=== PATIENT | female | born 2000 | race Caucasian/White ===

== ENCOUNTER 2022-12-12 09:05 | Outpatient (CLI) | payer BC, SELFPAY ==
--- OUTSIDE RECORDS SUMMARY | 2022-12-12 09:08 | XMS_ITS ---
:2000 Author Organization [facility] Address [address] [place] [address] [place] [address] Care Team Providers Name Role Phone Christine Howard Unavailable Unavailable PROBLEMS Type Condition ICD9-CM Code XML96-FY Code Onset Condition SNO MED Code Dates Status Problem Obesity (BMI E66.9 Active 8143289 01 30-39.9) Problem Oral aphthous K12.0 Active 764782 005 ulcer Problem Migraine with G43.109 Active 874988 6 aura and without status migrainosus, not intractable Problem Anxiety F41.9 Active 67965035 Problem Exercise induced J45.990 Active 323 266853 bronchospasm Problem Other recurrent F33.8 Active 1916 75744 depressive disorders Problem Panic attacks F41.0 Active 997813 005 ALLERGIES Substance Reaction Event Type Date Status Amoxicillin rash Drug Allergy Nov, Active ENCOUNTERS Encounter Location Date Diagnosis [address] Nov, Other rec urrent depressive [place] [address] disorders F33.8 ; with 7 completed weeks gestation Z3A.01 ; Anxiety F41.9 ; Upper ba ck pain M54.9 and Migrai ne with aura and without stat us migrainosus, not intractable G43.[address] Nov, [place] [address] Oct, Anxiety F 41.9 [place] [address] Jul, [place] [address] Jul, [place] [address] Jul, Anxiety F 41.9 ; Other [place] recurrent depres sive disorders F33.8 and Oral aphthous ulcer K 12.[address] Jun, Anxiety F 41.9 [place] [address] March, [place] [address] March, Encounter for screening for [place] [address] malignant neopla sm of cervix Z12.4 ; Encounte r for screening examin ation for sexually transmi tted disease Z11.3 ; Anxiety F41.9 ; Dermatophytosis of unspecified site B35.9 ; Need for Tdap va ccination Z23 and Immuniza tion due Z23 [address] March, Anxiety F 41.9 [place] [address] Nov, Anxiety F 41.9 [place] [address] Aug, Encounter for BCP ( [place] [address] control pills) i nitial prescription Z30 .011 ; Encounter for Ne xplanon removal Z30.46 ; Anxiety F41.9 and Immuni zation due Z23 [address] 13 May, 2021 Anxiety F 41.9 ; Other [place] [address] recurrent depres sive disorders F33.8 and Panic attacks F41.[address] 08 May, 2021 Anxiety F 41.9 [place] [address] Jan, Anxiety F 41.9 ; [facility] [place] [address] attacks F41.0 an d Other recurrent depres sive disorders F33.[address] Nov, Anxiety F 41.9 ; [facility] [place] [address] attacks F41.0 ; Exercise induced bronchos pasm J45.990 and Obesity (BMI 30-39.9) E66.[address] Jul, [place] [address] Jul, [place] [address] Jun, Encounter for routine Center [place]89 history and phys ical examination of a dult Z00.00 ; Anxiety F41.9 ; Other recurrent depres sive disorders F33.8 ; Exercise induced bronchos pasm J45.990 ; Nausea R11.0 a nd Obesity (BMI 30-39.9) E6 6.[address] Nov, [place] [address] Aug, [place] [address] Jun, Encounter for routine [facility] [place] history and phys ical examination of a dult Z00.00 ; Anxiety F41.9 ; Other recurrent depres sive disorders F33.8 and Exercise induced bronchos pasm J45.[address] March, Acute ebony opharyngitis J00 [place] [place]89 and Follicular c yst of the skin and subcuta neous tissue, unspecif ied L72.[address] Nov, TOMAS Garcia [address] Nov, [place] [address] Nov, TOMAS Garcia [address] Nov, TOMAS Garcia [address] Nov, [place] [address] Nov, [place] [address] Nov, Acute pha ryngitis, TOMAS Garcia89 unspecified J02. 9 and Other conjunctivitis H 10.89 IMMUNIZATIONS Vaccine Route Administration Date Status Tdap (BOOSTRIX) IM Intramuscular March 20, 2022 Administered SOCIAL HISTORY Qualifiers Date Never Smoker REASON FOR REFERRAL Reason Control Referral Organization [facility] Referring Provider First Name Christine Referring Provider Last Name Anita Referring Provider Specialty Family Practice Referring Provider Referring Provider email [email or web address] Referred Provider [facility], [place] Referred Provider Specialty Family Medicine Reason Non-palpable nexplanon, need s removal Referral Organization [facility] Referring Provider First Name Christine Referring Provider Last Name Anita Referring Provider Specialty Family Practice Referring Provider Referring Provider email [email or web address] Referred Provider DELISA Wadsworth Referred Provider Specialty OB - Gynecology Reason eval and treat Referral Organization [facility] Referring Provider First Name Christine Referring Provider Last Name Anita Referring Provider Specialty Family Practice Referring Provider Referring Provider email [email or web address] Referred Provider Kahlil Salas Referred Provider Specialty Mental health counseling FUNCTIONAL STATUS PLAN OF CARE Activity Details Follow Up 4-6 weeks or sooner as lam jones Reason:Depression, migraines, neck pain Referral Control, [place] [facility] Referral Non-palpable nexplanon, need s removal, [facility] and [facility] [place] VITAL SIGNS Height 65 in 2022-11-23 Weight 244 lbs 2022-11-23 BMI 40.6 kg/m2 2022-11-23 Heart Rate 98 /min 2022-11-23 Temperature 97.5 degrees Fahrenheit 2022-11-23 Respiratory Rate 16 /min 2022-11-23 Oximetry 99 % 2022-11-23 Blood pressure systolic 108 mm Hg 2022-11-23 Blood pressure diastolic 75 mm Hg 2022-11-23 MEDICATIONS Medication Instructions Dosage Frequency Start End Duration Statu s Date Date Ventolin HFA 108 Inhalation 2 puffs as 4h N ot-Taki (90 Base) every 4 hrs needed ng MCG/ACT Sertraline HCl Orally Once a 1/2 tablet 24h Nov, days Active 50 MG day for week 120[address] then increase to 1 tablet hydrOXYzine HCl Orally every 8 1-2 tablets 8h 30 da ys Not-Taki 25 MG hrs as needed ng DULoxetine HCl Orally Once a 1 capsule 24h 90 days N ot-Taki 60 MG day ng Nexplanon 68 MG as directed 1095 days No t-Taki ng Naproxen 500 MG Orally every 12 1 tablet as 12h 90 d ays Not-Taki hrs needed ng Norethindrone Orally Once a 1 tablet 24h Aug, day(s) N ot-Taki 0.35 MG day 2020 ng Lidocaine HCl 2 Mouth/Throat 1-2 tsp 21 Sep, Not -Taki % every 3-4 hours (mix with 2021 ng equal amount liquid antacid of choice) Methocarbamol Orally every 8 1 tablet No t-Taki 750 MG hrs as needed ng PROCEDURES Procedure Date Ordered Result Body Site STREP A ASSAY W/OPTIC Nov 16, 2016 Tdap (BOOSTRIX) March 20, 2022 VENIPUNCT, ROUTINE* Jul 03, 2019 SPECIMEN HANDLING March 20, 2022 IMMUNIZATION ADMIN March 20, 2022 RESULTS Name Result Date Reference Range BV/VAGINITIS PANEL DNA PROBE 2022-03-20 RICKEY: NOT DETECTED NOT DETECTED GARDNERELLA: NOT DETECTED NOT DETECTED TRICHOMONAS: NOT DETECTED NOT DETECTED CHLAMYDIA/N. 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 BX: PREV. PAP: REVIEW MUD ANALYSIS WELL LOGGING OPERATOR: SOURCE: STATEMENT OF ADEQUACY: LIPID PANEL 2019-07-03 CHOL/HDLC RATIO 3.5 <5.0 CHOLESTEROL, TOTAL 170 <200 HDL CHOLESTEROL 49 >50 LDL-CHOLESTEROL 99 NON HDL CHOLESTEROL 121 <130 TRIGLYCERIDES 127 <150 BASIC METABOLIC PANEL 2019-07-03 BUN/CREATININE RATIO NOT APPLICABLE 6-22 CALCIUM 9.7 8.6-10.2 CARBON DIOXIDE 25 20-32 CHLORIDE 105 98-110 CREATININE 0.91 0.50-1.10 eGFR 105 > OR = 60 eGFR NON-AFR. GIBRALTARIAN 90 > OR = 60 GLUCOSE 77 65-139 POTASSIUM 4.3 3.5-5.3 SODIUM 139 135-146 UREA NITROGEN (BUN) 9 7-25 TSH W/REFLEX TO FT4 2019-07-03 TSH W/REFLEX TO FT4 1.53 LIPID PANEL 2019-07-03 CHOL/HDLC RATIO TNP CHOLESTEROL, TOTAL TNP HDL CHOLESTEROL TNP LDL-CHOLESTEROL TNP NON HDL CHOLESTEROL TNP TRIGLYCERIDES TNP BASIC METABOLIC PANEL 2019-07-03 GLUCOSE TNP CBC (H/H, RBC, INDICES, WBC, 2019-07-03 PLT) HEMATOCRIT 41.1 35.0-45.0 HEMOGLOBIN 13.6 11.7-15.5 MCH 25.5 27.0-33.0 MCHC 33.1 32.0-36.0 MCV 77.1 80.0-100.0 MPV 11.4 7.5-12.5 PLATELET COUNT 353 140-400 RDW 15.1 11.0-15.0 RED BLOOD CELL COUNT 5.33 3.80-5.10 WHITE BLOOD CELL COUNT 8.3 3.8-10.8 HEMOGLOBIN A1c 2019-07-03 HEMOGLOBIN A1c 5.6 <5.7 TSH W/REFLEX TO FT4 2019-07-03 TSH W/REFLEX TO FT4 TNP TEST IN QUESTION- MISC QUESTION 2019-07-03 COMMENT QUESTION: VERIFY DUPLICATE ORDER DONE([id number]) RESOLUTION: QUESTION/PROBLEM: TEST AUTHORIZATION 2019-07-03 CLIENT CONTACT: KIKE Gale COMMENT REPORT ALWAYS MESSAGE SIGNATURE TEST CODE: [id number] TEST NAME: TSH W/REFLEX TO FT4 LIPID JOHNSON CULTURE, THROAT 2017-03-14 CULTURE, THROAT SEE NOTE CULTURE, THROAT 2016-11-16 CULTURE, THROAT SEE NOTE REASON FOR VISIT Insurance Providers [facility] Health Member Patient Patient Patient Patient Patient Subscriber Subscriber Subscriber Group Insurance Plan Plan Plan Plan ID Relationship Address Phone Name Date of ID Name Date of No Type Insurance Insurance Insurance Coverage to Subscriber Address Phone Name Dates BCBS [address] BCBS self 2000 [id number] [employer] [address] [address] [place] [address] MEDICAL (GENERAL) HISTORY Type Description Date Surgical History Nexplanon Removal 09/22/21
--- NOTE | 2022-12-12 09:15 | CRLHL7_ITS ---
For Patients: As a result of the Century Cures Act, medical imaging exams and procedure reports are released immediately into your electronic medical record. You may view this report before your referring provider. If you have questions, please contact your health care provider. INDICATION: First trimester scan, establish dates. COMPARISON: None. TECHNIQUE: Real-time guidry-scale imaging of the pelvis was performed. FINDINGS: Sonographic imaging demonstrates a single living intrauterine gestation. The embryo demonstrates a regular cardiac rate measuring 147 beats per minute. The embryo`s crown-rump length measurement of 3.4 cm corresponds to a gestational age of 10 weeks 2 days with a sonographic due date of 07/08/2023. There is a normal-appearing yolk sac. There are no gross abnormalities noted within the embryo at this early state of development. The gestational sac has a normal appearance. There is no evidence of a perigestational hemorrhage. The amount of fluid within the sac appears appropriate for gestational age. The cervix is closed. The myometrium appears normal. The ovaries are of normal size. Corpus luteal cyst right ovary. There are no suspicious fluid collections noted in the cul-de-sac. IMPRESSION: Normal first trimester OB ultrasound exam. Gestational age calculated at 10 weeks 2 days with a sonographic due date of 07/08/2023. Dictated by Blayne Kovacs MD @ 12/12/2022 1:03:43 PM (Electronically Signed)
== END 2022-12-12 09:06 | disposition home or self-care (01) ==
LOC: US 09:07
PROVIDERS: Visit Provider Registered Nurse
DX: Z34.91 Encounter for supervision of normal pregnancy, unspecified, first trimester (principal); Z3A.10 10 weeks gestation of pregnancy
CPT/HCPCS: 76801; 86592; 86703; 86762; 86787; 86803; 86850; 86900; 86901; 87086; 87340; 87491; 87591

== ENCOUNTER 2023-02-14 08:12 | Outpatient (CLI) | payer BC, SELFPAY ==
--- NOTE | 2023-02-14 08:15 | CRLHL7_ITS ---
For Patients: As a result of the Century Cures Act, medical imaging exams and procedure reports are released immediately into your electronic medical record. You may view this report before your referring provider. If you have questions, please contact your health care provider. INDICATION: Evaluate anatomy. COMPARISON: 12/12/2022 TECHNIQUE: Real time guidry scale imaging of the fetus was performed as well as color Doppler analysis of the umbilical vessels. FINDINGS: Sonographic imaging demonstrates a single living intrauterine gestation. Fetus demonstrates a regular cardiac rate of 139 beats per minute. Fetus has a vertex position. The placenta lies anteriorly without evidence of placenta previa. The placenta is located 6.6 cm from the internal cervical os. Amniotic fluid volume appears normal. Single deepest vertical pocket: 5.3 cm. The cervix is closed and measures 3.4 cm in length. The composite ultrasound gestational age is calculated at 19 weeks 3 days with an estimated sonographic due date of 07/08/2023. The estimated weight is 304 grams which lies at the 66th %. The following biometric measurements were obtained: Biparietal diameter: 4.5 cm/19 weeks 4 days 63rd% Head circumference: 16.9 cm/19 weeks 4 days 54th% Abdominal circumference: 13.8 cm/19 weeks 1 day 42nd% Femur length: 3.3 cm/20 weeks 1 day 74th% The HC/AC ratio measures: 1.23 range (1.08-1.26) On anatomic survey, there is a normal appearance of the cerebral ventricles, cavum septi pellucidi, cisterna magna and cerebellum. The nose, lips, and facial profile appear normal. The cervical, thoracic and lumbar spine are well visualized and appear normal. There is a normal four-chamber heart view and the left and right ventricular outflow tracts appear normal. The diaphragm and stomach appear normal. The kidneys and bladder also appear normal. There is a normal three-vessel cord and cord insertion site. The four extremities appear normal. IMPRESSION: Normal OB ultrasound exam with concordance of clinical and sonographic dating. No intrinsic abnormalities noted on anatomic survey. Dictated by Blayne Kovacs MD @ 02/14/2023 9:49:52 AM (Electronically Signed)
== END 2023-02-14 08:13 | disposition home or self-care (01) ==
LOC: US 08:13
PROVIDERS: Visit Provider Advanced Practice Midwife
DX: Z34.92 Encounter for supervision of normal pregnancy, unspecified, second trimester (principal); Z3A.19 19 weeks gestation of pregnancy
CPT/HCPCS: 76805

== ENCOUNTER 2023-04-11 09:23 | Outpatient (CLI) | payer BC, SELFPAY | END 2023-04-11 09:24 | disposition home or self-care (01) | LOC: NFLDREF 04-14 13:18 | PROVIDERS: PCP Advanced Practice Midwife; Visit Provider Advanced Practice Midwife | DX: Z34.93 Encounter for supervision of normal pregnancy, unspecified, third trimester (principal); Z3A.28 28 weeks gestation of pregnancy | CPT/HCPCS: 86592 ==

== ENCOUNTER 2023-04-18 07:59 | Outpatient (CLI) | payer BC, SELFPAY | END 2023-04-18 08:00 | disposition home or self-care (01) | LOC: NFLDREF 04-19 14:50 | PROVIDERS: PCP Advanced Practice Midwife; Referring Provider Advanced Practice Midwife; Visit Provider Advanced Practice Midwife | DX: Z34.93 Encounter for supervision of normal pregnancy, unspecified, third trimester (principal); Z3A.28 28 weeks gestation of pregnancy | CPT/HCPCS: 82951; 82952 ==

== ENCOUNTER 2023-06-08 15:25 | Outpatient (CLI) | payer BC, SELFPAY ==
--- OUTSIDE RECORDS SUMMARY | 2023-06-08 15:27 | XMS_ITS | Patient Health Record ---
Author Name Unknown Organization [facility] Address [address] [place] [address] Care Team Providers Care Band Top Maker Name Role Phone Christine Toro Primary Care Provider [phone] Cherri Trevino Unavailable [phone] Flori Perez Unavailable [phone] ALLERGIES Allergen (clinical drug ingredient) Drug/Non Drug Allergy documented on EMR Reaction Allergy Type Onset Date Status amoxicillin Amoxicillin rash Drug Allergy Act audra REASON FOR REFERRAL Reason eval and treat Diagnosis 1 Other recurrent depr essive disorders (F33.8) Diagnosis 2 Anxiety (F41.9) Referral Organization [facility] Referring Provider First Name Christine Referring Provider Last Name Cortez Referring Provider Speciality [facility] Referred Provider Raman Rubiobury Referred Provider Specialty Mental [facility] counseling Referral Priority Routine MEDICATIONS Medication SIG (Take, Route, Frequency, Duration) Notes Start Date End Date Status Nexplanon 68 MG as directed Subcutaneous for 1095 days Not-Taking Lidocaine HCl 2 % 1-2 tsp (mix with eq ual amount liquid antacid of choice) Mouth/Throat every 3-4 hours 07/25/2022 Not-Taking Ventolin HFA 108 (90 Base) MCG/ACT 2 puffs as needed Inhalation every 4 hrs PRN Not-Takin g Methocarbamol 750 MG 1 tablet Orally percy ry 8 hrs as needed prn Not-Taking Naproxen 500 MG 1 tablet as needed Orally every 12 hrs for 90 days prn Not-Taking Norethindrone 0.35 MG 1 tablet Orally On ce a day for 84 day(s) 08/15/2021 Not-Taking Sertraline HCl 50 MG 1 tablet Orally Onc e a day for 90 days 11/23/2022 Active DULoxetine HCl 60 MG 1 capsule Orally On ce a day for 90 days Not-Taking hydrOXYzine HCl 25 MG 1-2 tablets as nee ded Orally every 8 hrs for 30 days PRN Not-Taking IMMUNIZATIONS Vaccine Route Administration Date Status Comme nts Tdap (BOOSTRIX) IM Intramuscular 03/20/2022 Administered SOCIAL HISTORY Tobacco Use: Social History Observation Description Date Details (start date - stop date) Never Smoker NA - NA Sex Assigned At : Social History Observation Description Sex Assigned At Unknown Tobacco Use/Smoking Question Answer Notes Are you a nonsmoker PROBLEMS Problem Type ICD Code Onset Dates Problem Status W/U Status Risk SNOMED Code Notes Problem Other recurrent depressive disorders (F33.8) Active confirmed Recurrent depression (454957032) Problem Exercise induced bronchospasm (J45.990) Active confirmed Exercise induce d bronchospasm (868316915) Problem Anxiety (F41.9) Active confirmed Anxiet y (71522487) Problem Obesity (BMI 30-39.9) (E66.9) Active confirmed Obesity (078803481) Problem Migraine with aura and without status migrainosus, not intractable (G43.109) Active confirmed 5639573 Problem Panic attacks (F41.0) Active confirmed 208697031 Problem Oral aphthous ulcer (K12.0) Active confirmed Aphthous ulcer of mouth (768816202) VITAL SIGNS Heart Rate 98 /min 11/23/2022 Temperature 97.5 degrees Fahrenheit 11/23/2022 Respiratory Rate 16 /min 11/23/2022 Blood pressure diastolic 75 mm Hg 11/23/2022 Oximetry 99 % 11/23/2022 Height 65 in 11/23/2022 Blood pressure systolic 108 mm Hg 11/23/2022 Weight 244 lbs 11/23/2022 BMI 40.6 kg/m2 11/23/2022 Encounters Encounter Location Date Provider Diagnosis [address] [address] 11/01/2022 Christine Toro [address] [address] 07/25/2022 Flori Perez Anxiety F41.9 ; Othe r recurrent depressive disorders F33.8 and Oral aphthous ulcer K12.0 [address] [address] 11/23/2022 Christine Toro Other recurrent depressive disorders F33.8 ; with 7 completed weeks gestation Z3A.01 ; Anxiety F41.9 ; Upper back pain M54.9 and Migraine with aura and without status migrainosus, not intractable G43.[address] [place] [address] 06/28/2022 Cherri Trevino Anxiety F41.[address] [place] [address] 07/25/[address] [place] [address] 07/25/[address] [place] [address] 11/01/2022 Christine Toro Anxiety F41.[address] [place] [address] 11/19/2022 Christine Cortez [address] [place] [address] 03/12/2023 Christine Toro Other recurrent depressive disorders F33.8 ASSESSMENTS Encounter Date Diagnosis Assessment Notes Treatment Notes Treatment Clinical Notes 03/12/2023 Other recurrent depressive disorders (ICD-10 - F33.8) 11/23/2022 Other recurrent depressive disorders (ICD-10 - F33.8) Due to PHQ= 17 and ANGELICA= 11 recommend patient start sertraline 50 mg. Advised that she start with half tablet for few days and then increase to 50 mg as tolerated. Patient previously on duloxetine which did help with some of the fatigue and depressed symptoms. She is unsure how well it actually did help. Advised patient that she may have additional symptoms due to being including increased fatigue. 11/23/2022 with 7 completed weeks gestation (ICD-10 - Z3A.01) Based on LMP due date is July 09. Patient is currently 7 weeks and 3 days. Discussed with patient medications that she can and should not take. Additionally advised her to talk to us her CERTIFIED ETHICAL HACKER about some of these medications. She has an appointment scheduled next week. Patient is excited about the and has good support from her boyfriend and family. 11/01/2022 Anxiety (ICD-10 - F41.9) 06/28/2022 Anxiety (ICD-10 - F41.9) 07/25/2022 Anxiety (ICD-10 - F41.9) Continue present medications. 07/25/2022 Oral aphthous ulcer (ICD-10 - K12.0) 07/25/2022 Other recurrent depressive disorders (ICD-10 - F33.8) Will refer to psychiatry for evaluation for bipoloar disorder and ADHD. Agrees to go to emergency care or return if she is feeling homicidal or suicidal. Advised not to drink too many energy drinks; side effects discussed. Offered topical anesthetic for mouth sores but patient states she did not need at this time. She does not want to change the time of taking duloxetine at this time from morning to nighttime. States she misses PCP Christine. 11/23/2022 Anxiety (ICD-10 - F41.9) See depression. 11/23/2022 Upper back pain (ICD-10 - M54.9) Patient has some upper neck tension that is likely contributing to head tension and headaches. Discussed options that she can use while . Patient given handout on what she can try. Discussed that can cause some increased headaches. Encouraged her to use heat, massage and careful lifting things to decrease tension and pain in the upper back. Recommend she discuss with CERTIFIED ETHICAL HACKER. Patient can take Flexeril which was previously given to her however she was unsure if she could take it with . Reassured patient that it is what is typically used in . 11/23/2022 Migraine with aura and without status migrainosus, not intractable (ICD-10 - G43.109) Discussed options for trying to eliminate headaches. Also discussed if not getting better ways to attempt to prevent them. Recommend patient discuss these further with CERTIFIED ETHICAL HACKER. To break headache Magnesium 750 to 800 mg Tylenol 2000 mg Sudafed pseudoephedrine 10 to 15 mg Diphenhydramine Benadryl 25 mg or doxylamine Unisom 25 mg To prevent headaches take daily Magnesium to 50 mg Riboflavin vitamin B2 200 mg 11/23/2022 Other PLAN OF TREATMENT No Information Insurance Providers Payer Name Payer Address Payer Phone Subscriber Number Group Number Insured Name Patient Relationship to Insured Coverage Start Date Coverage End Date BCBS [employer] [address] [address] [place] [address] [id number] October Self - patient is the insured MEDICAL (GENERAL) HISTORY Surgical History Surgery Date(Month/Year) Nexplanon Removal 09/22/21
[2023-06-08 15:35] VITALS: PULSE 91; TEMP 36.9; O2SAT 97
[2023-06-08 15:36] VITALS: BP 113/65; PULSE 93
[2023-06-08 16:49] LABS: Appearance Urine Clear (Clear); Bilirubin Urine Negative (Negative); Blood Urine Negative (Negative); Color Urine Yellow (Yellow); Glucose Urine Negative (Negative); Ketones Urine Negative (Negative); Leukocyte Esterase Urine Negative (Negative); Nitrite Urine Negative (Negative); Protein Urine Negative (Negative); Specific Gravity Urine 1.025 (1.000-1.030); Urobilinogen Urine 0.2 (0.2-1.0)
--- NOTE | 2023-06-08 17:04 | PC.OBNST ---
NST Note NST Note Start: 06/08/23 15:37 Freq: ONCE Status: Active Protocol: Document 06/08/23 17:02 SPIRITISM (Rec: 06/08/23 17:03 SPIRITISM [id number]) NST Note 1 Para (# of births) 0 EDC 07/09/23 Gestational Age In Weeks & Days 35 Weeks & 4 Days Patient Presented with Complaint(s) of Pain If Pain, describe location Mid/Left side of abdomen. Reactive Yes Appropriate for Gestational Age Yes ALEKSANDER Rivas Date 06/08/23 Reactive Yes Appropriate for Gestational Age Yes ALEKSANDER Hollingsworth Date 06/08/23 OB NST charge Yes Complete NST Note via Write Note Yes The provider's electronic signature indicates the NST is reactive/appropriate for gestational age. *Note to provider: If an addendum is required, open the patient's chart and click on the note under the Nurse/Allied Health tab.
== END 2023-06-08 16:40 | disposition home or self-care (01) ==
LOC: OB OUT 15:25 → OB 15:26
PROVIDERS: Visit Provider Advanced Practice Midwife
DX: O47.03 False labor before 37 completed weeks of gestation, third trimester (principal); Z3A.35 35 weeks gestation of pregnancy
CPT/HCPCS: 59025; 81003; 87086; 99213

== ENCOUNTER 2023-06-13 09:27 | Outpatient (CLI) | payer BC, SELFPAY ==
[2023-06-14 11:14] LABS: Strep B DNA Probe NEGATIVE (Negative)
[2023-06-14 11:23] LABS: Strep B Pen/Amox Allergy No
== END 2023-06-13 09:28 | disposition home or self-care (01) ==
PROVIDERS: Visit Provider Advanced Practice Midwife
DX: Z34.93 Encounter for supervision of normal pregnancy, unspecified, third trimester (principal); Z3A.36 36 weeks gestation of pregnancy
CPT/HCPCS: 87081; 87653

== ENCOUNTER 2023-07-07 10:19 | Inpatient (IN) | payer BC, SELFPAY ==
[2023-07-07] VITALS (40 sets, daily range): BP systolic 79–141; BP diastolic 47–89; PULSE 82–127; RESP 16–18; TEMP 36.4–36.9; O2SAT 97–100; BMI 42.6
--- OUTSIDE RECORDS SUMMARY | 2023-07-07 09:01 | XMS_ITS | Patient Health Record ---
Author Name Unknown Organization [facility] Address [address] [place] [address] [place] [address] Care Team Providers Care Rfid Engineer Name Role Phone Christine Toro Primary Care Provider Flori Perez Unavailable [phone] ALLERGIES Allergen (clinical drug ingredient) Drug/Non Drug Allergy documented on EMR Reaction Allergy Type Onset Date Status amoxicillin Amoxicillin rash Drug Allergy Act audra REASON FOR REFERRAL Reason eval and treat Diagnosis 1 Other recurrent depr essive disorders (F33.8) Diagnosis 2 Anxiety (F41.9) Referral Organization [facility] Referring Provider First Name Christine Referring Provider Last Name Cortez Referring Provider Speciality [facility] Referred Provider [facility] Referred Provider Specialty Mental [facility] counseling Referral Priority Routine MEDICATIONS Medication SIG [...] depressive disorders (F33.8) Active confirmed Recurrent depression (821330694) Problem Exercise induced bronchospasm (J45.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) Active confirmed Exercise induce d bronchospasm (655957146) Problem Anxiety (F41.9) Active confirmed Anxiet y (83444498) Problem Obesity (BMI 30-39.9) (E66.9) Active confirmed Obesity (618134977) Problem Migraine with aura and without status migrainosus, not intractable (G43.109) Active confirmed 5909876 Problem Panic attacks (F41.0) Active confirmed 714607166 Problem Oral aphthous ulcer (K12.0) Active confirmed Aphthous ulcer of mouth (892762910) VITAL SIGNS Heart Rate 98 /min 11/23/2022 Temperature 97.5 degrees Fahrenheit 11/23/2022 Respiratory Rate 16 /min 11/23/2022 Blood pressure diastolic 75 mm Hg 11/23/2022 Oximetry 99 % 11/23/2022 Height 65 in 11/23/2022 Blood pressure systolic 108 mm Hg 11/23/2022 Weight 244 lbs 11/23/2022 BMI 40.6 kg/m2 11/23/2022 Encounters Encounter Location Date Provider Diagnosis [address] [place] [address] 11/01/2022 Christine Toro [address] [place] [address] 07/25/2022 Flori Perez Anxiety F41.9 ; Othe r recurrent depressive disorders F33.8 and Oral aphthous ulcer K12.[address] [place] [address] 11/23/2022 Christine Toro Other recurrent depressive disorders F33.8 ; with 7 completed weeks gestation Z3A.01 ; Anxiety F41.9 ; Upper back pain M54.9 and Migraine with aura and without status migrainosus, not intractable G43.[address] [address] 07/25/[address] [address] 07/25/[address] [address] 11/01/2022 Christine Toro Anxiety F41.[address] [address] 11/19/2022 Christine Toro [address] [address] 03/12/2023 Christine Toro Other recurrent depressive disorders F33.8 ASSESSMENTS Encounter Date Diagnosis Assessment Notes Treatment Notes Treatment Clinical Notes 03/12/2023 Other recurrent depressive disorders (ICD-10 - F33.8) 11/01/2022 Anxiety (ICD-10 - F41.9) 11/23/2022 Other recurrent depressive disorders (ICD-10 - [...] advised her to talk to us her MINE ANALYST about some of these medications. She has an appointment scheduled next week. Patient is excited about the and has good support from her boyfriend and family. 07/25/2022 Anxiety (ICD-10 - F41.9) Continue present [...] the upper back. Recommend she discuss with MINE ANALYST. Patient can take Flexeril which was previously [...] them. Recommend patient discuss these further with MINE ANALYST. To break headache Magnesium 750 to 800 [...] Insured Coverage Start Date Coverage End Date BS [employer] [address] [address] [place] [id number] [employer] Self - patient is the insured MEDICAL (GENERAL) HISTORY Surgical History Surgery Date(Month/Year) Nexplanon Removal 09/22/21
[2023-07-07 09:57] LABS: Amnisure Rom* POSITIVE
--- NOTE | 2023-07-07 10:07 | W.PM.LDBA ---
Subjective History of Present Illness Narrative: Ankit is a 23 yo at 39 5/7 weeks gestation being admitted to Labor and Delivery for ROM of clear fluid that occurred at about 7 am this morning. She reports having some wetness in her underwear yesterday but this morning she had two large gushes of amniotic fluid when she woke. She reports mild contractions started after and have remained irregular which is why she wasn't sure if it was that or urine. She continues to have irregular contractions, some that are stronger than others. She denies any bleeding or abdominal pain. She is supported by her partner, Johny. Her full history and physical was dictated by by Tani Ledbetter CNM on 06/20/2023. Please see this for details. Specific Issues/Plans H&P 06/20/23 by Tani Ledbetter CNM S.O.: Johny (has 3 kids: 10y.o., 5y.o., 4m.o.) 1. Anxiety and Depression. Sertraline 50mg. PHQ 16, ANGELICA 10 at [facility]. Patient reports she is doing well and feels she is close to her baseline. Would like to switch back to Cymbalta PP. 2. BMI 38.9. Hgb A1C: 5.3 Baby ASA at 12 weeks (d/t obesity and nullip) Consider BPP and/or NST starting at 37 weeks: declines 3. Rubella NON-immune 4. Varicella NON-immune Will recommend vaccines 5. Failed 1hr GTT 154 3hr GTT: passed all values Flu: Recommended. Declined. Covid: Unvaccinated. Recommended. OB - Problem Based A/P Additional Plan (1) Premature rupture of membranes: Status: Acute (2) 39 weeks gestation of : Status: Acute (3) Anxiety and depression: Status: Acute (4) Mild intermittent asthma: Status: Acute Plan ASSESSMENT:? 23 at 39 5/7 weeks gestation? complicated by:?Anxiety/Depression, Prepregnancy BMI 38.9, Rubella and Varicella non-immune, Failed 1 hour gct but passed 3 hr, mild asthma Labor type: Spontaneous, Early labor? Category 1 FHR pattern.?? Labor complicated by: PROM? GBS negative? ? PLAN:? 1. Routine intrapartum cares as ordered. Discussed PROM and recommendations with labor progression. Discussed initiation of medication to encourage labor progression vs expectant management for 12 hours. She prefers to defer medication at this time and agrees with expectant management. Recommended starting pitocin or cytotec at 12 hours if there has been minimal change in labor status. She is agreeable to this plan.? 2. Monitoring per policy, intermittent? 3. Planning unmedicated . Desires water . Consent signed. Hep C negative. Candidate for analgesia of choice if desired.?? 4. Patient encouraged to reposition and ambulate to promote physiologic labor and .? 5. Anticipate ? Delivery/Labor/Induction Plan Plan: expectant management OB Exam Physical Exam Vital signs: Pulse BP Pulse Ox 100 117/75 98 07/07/23 09:29 07/07/23 09:29 07/07/23 09:15 Narrative: Vitals Reviewed Constitutional:? Alert and oriented x3 HEENT:? Normocephalic, atraumatic Neck:? Supple Lungs:? Clear to auscultation bilaterally Heart:? Regular rate and rhythm, no murmur, rub or gallop Abdomen:? Soft, nontender, and gravid. Vertex by Ishan's, confirmed bedside US. Extremities:? No edema or erythema Cervix: Deferred due to ROM NST: 135 bpm/moderate variability/15x15 accelerations/no decelerations/irregular contractions q 5-10 minutes Detailed Labor and Delivery Exam Patient Gravid: Yes
[2023-07-07] MEDS: ONDANSETRON ODT 4 MG TAB PO (12:32)
--- NOTE | 2023-07-07 17:05 | PM.OBPNL ---
Subjective Date Seen: 07/07/23 Narrative: Ankit is at 23 yo at 39 5/7 weeks gestation that presented this morning for ROM that occurred at about 7 am this morning with clear fluid. She was initially having irregular contractions. She reports they are now more regular, about every 4 minutes, and have increased in intensity. She continues to feel them most in her back. She has managed labor pain with few position changes and the tub. She has been encouraged to move or try the labor warm-up to facilitate positioning and labor progression but has declined. Her partner is at bedside. She desires a cervical exam. She is wondering about options for pain management. Discussed IV fentanyl, Nitrous, movement/controlled breathing, or tub. She is wanting to try nitrous at this time. Objective Exam: Objective: Constitutional: Alert and oriented x3, moderate distress, coping well Vital signs stable, see nurse documentation Abdomen: gravid, contractions palpate moderate with contractions and soft between Cervix: 4 cm/70%/-2 station/vertex Intermittent Auscultation: Baseline 135 with accel to 140's, no decelerations noted. Vital Signs: Last Vital Signs Temp 98.1 F 07/07/23 16:33 Pulse 84 07/07/23 13:31 Resp 18 07/07/23 12:40 BP 130/81 07/07/23 13:31 Pulse Ox 97 07/07/23 13:31 Pelvic Exam Dilation (cm): 4 Effacement (%): 70 Station: -2 Contractions Monitor mode: Palpation Contraction Frequency: 3-5 minutes Contraction pattern: Regular Contraction intensity: Moderate Assessment Assessment: early labor Amniotic Membrane Status: SROM (0700 am) Plan Plan: ASSESSMENT:? 23 at 39 5/7 weeks gestation? complicated by:?Anxiety/Depression, Prepregnancy BMI 38.9, Rubella and Varicella non-immune, Failed 1 hour gct but passed 3 hr, mild asthma Labor type: Spontaneous, Early labor? Intermittent Monitoring: Reassuring? Labor complicated by: PROM? GBS negative? ? PLAN:? 1. Routine intrapartum cares as ordered. Continue with expectant management. Would consider augmentation if labor slows. 2. Monitoring per policy, intermittent? 3. Planning unmedicated . Desires water . Consent signed. Hep C negative. Candidate for analgesia of choice if desired.?Desires to try Nitrous. 4. Patient encouraged to reposition and ambulate to promote physiologic labor and .? 5. Anticipate ?
[2023-07-07] MEDS: LACTATED RINGERS 1000 ML 1,000 ML 999 ML IV ×2 (20:32→21:18)
[2023-07-07] MEDS: ROPIVACAINE 0.2% 100 ml 100 ML 12 MG EPIDURAL ×2 (21:05→21:09)
--- NOTE | 2023-07-07 21:30 | P.ANBPRC_ITS ---
[facility] Medical History Nexplanon removal ?Z30.46 - Encounter for surveillance of implantable subdermal contraceptive (ICD-10) Chronic back pain ?M54.9 - Dorsalgia, unspecified (ICD-10) ?G89.29 - Other chronic pain (ICD-10) Anxiety ?F41.9 - Anxiety disorder, unspecified (ICD-10) Depression ?F32.A - Depression, unspecified (ICD-10) Family History (Updated 06/20/23 @ 10:12 by Keely Ledbetter CNM) Paternal Grandfather Diabetes Cancer Paternal Grandmother Breast cancer Maternal Grandmother Uterine cancer Father Cardiovascular disease Social History What is your current living situation?: I presently have a place to live Problems where you live: no known problems In the past 12 months, utilities in danger of being shut off: no In the past 12 mos, have been you worried that your food would run out before you had money to buy more?: never true In the past 12 mos, the food you bought just didn't last and you didn't have money to buy more?: never true Smoking Status: Never smoker Do you use any of these nicotine containing products: None Second hand tobacco smoke exposure: No How often do you have a drink containing alcohol: never How often do you have six or more drinks on one occasion: Never AUDIT-C Alcohol total score: 0 Non-prescribed substance use: denies use How often does anyone, including family, friends and others, physically hurt you : never How often does anyone, including family, friends and others, insult or talk down to you: never How often does anyone, including family, friends and others, threaten you with harm: never How often does anyone, including family, friends and others, scream or curse at you: never Little interest or pleasure in doing things: several days Feeling down, depressed, or hopeless: several days Meds Home Medications and Allergies Home Medications Medication Instructions Recorded Confirmed Type cholecalciferol (vitamin D3) 25 25 mcg PO QDAY 12/12/22 07/07/23 History mcg (1,000 unit) capsule docosahexaenoic acid 200 mg 200 mg PO DAILY 12/12/22 07/07/23 History capsule ( DHA) sertraline 50 mg tablet (Zoloft) 50 mg PO QDAY 12/12/22 07/07/23 History aspirin 81 mg tablet,delayed 81 mg PO QDAY 01/09/23 07/07/23 History release (Adult Low Dose Aspirin) magnesium 200 mg tablet 400 mg PO QDAY 01/09/23 07/07/23 History ferrous sulfate 325 mg (65 mg 325 mg PO QDAY 05/09/23 07/07/23 History iron) tablet (Feosol) Allergies Allergy/AdvReac Type Severity Reaction Status Date / Time amoxicillin Allergy Mild Hives Verified 07/04/23 09:23 Results Labs Labs: Laboratory Results - last 24 hr 07/07/23 09:28 Membrane Rupture POSITIVE Vital Signs Vital Signs: Last Vital Signs Temp 98.1 F 07/07/23 21:23 Pulse 111 H 07/07/23 21:29 Resp 16 07/07/23 21:23 BP 105/59 L 07/07/23 21:29 Pulse Ox 100 07/07/23 21:17 Weight: 116.165 kg Height: 165.1 cm Anesthesia Procedures Epidural Insertion Patient Location: OB Start Time: 20:30 Stop Time: 21:30 Start Date: 07/07/23 Stop Date: 07/07/23 Reason for Block: procedure for pain Patient Position: sitting Performed By: Celeste Serrano Preanesthetic Checklist: IV checked, risks and benefits discussed, monitors and equipment checked, timeout performed and anesthesia consent Prep: chlorhexidine gluconate Monitoring: blood pressure monitoring, continuous pulse oximetry and heart rate Approach: midline Vertebral Space: lumbar (1-5) Epidural Technique: DANIEL saline Needle Type: Tuohy needle Injection Technique: continuous catheter Needle gauge: 17 Needle Length (cm): 10 cm Needle Insertion Depth (cm): 9 Catheter Gauge: 19 Catheter Type: multi-orifice Catheter at skin depth (cm): 17 Test Dose Result: negative and lidocaine 1.5% with epinephrine 1 to 200,000
[2023-07-07] MEDS: PHENYLEPHRINE 100 MCG/ML SYRINGE IVP ×3 (21:45→22:52)
[2023-07-07] MEDS: hydrOXYzine pamoate 25 MG CAPSULE 100 MG PO (22:45)
[2023-07-07] MEDS: OXYTOCIN 30 unit/500 ML in NS 30 UNIT/500 ML BAG IVPB (23:05)
[2023-07-07] MEDS: ePHEDrine sulfate 5 MG/ML inj 10 MG IVP (23:24)
[2023-07-08] VITALS (31 sets, daily range): BP systolic 93–117; BP diastolic 44–72; PULSE 90–133; RESP 16–18; TEMP 36.6–37.3; O2SAT 96–97
--- NOTE | 2023-07-08 00:45 | P.OBPN_ITS ---
Subjective Date Seen: 07/08/23 Narrative: Ankit is a 23 yo G1 at 39 6/7 weeks gestation that presented yesterday morning with ROM of clear fluid that occurred at 0700 am. She slowly progressed on her own. At about 1999, she requested an epidural for pain management. She got relief from pain with the epidural but had a difficult time with the rectal pressure. At this time, she was 5-6 cm/90/-1. Indwelling catheter placement was attempted but she could not tolerate and had a panic attack. She was offered Vis taril to help with her anxiety. We discussed pitocin at this time for labor augmentation now being ruptured for greater than 18 hours. She continued to have intense anxiety, she requested to speak with her step-mother which helped her relax and she then agreed to pitocin after discussing it further. She was able to get some rest after Vistaril. Her partner continues to be present for labor support. She had been encouraged to reposition but has declined. Objective Exam: Objective: Constitutional: Alert and oriented x3, moderate distress, coping well Vital signs stable, see nurse documentation Abdomen: gravid, contractions palpate mild/moderate with contractions and soft between Cervix: 5 cm/90%/-1 station/vertex NST: 125 bpm/moderate variability/15x15 accelerations/no decelerations/irregular contractions, difficult to palpate due to maternal position Vital Signs: Last Vital Signs Temp 98.7 F 07/08/23 02:37 Pulse 116 H 07/08/23 06:06 Resp 16 07/08/23 02:37 BP 114/62 07/08/23 06:06 Pulse Ox 100 07/07/23 21:17 Pelvic Exam Dilation (cm): 5 Effacement (%): 90 Station: -1 Contractions Monitor mode: External Contraction pattern: Regular Contraction intensity: Moderate Assessment Assessment: active labor Amniotic Membrane Status: SROM (0700 am) Status: Category l Plan Plan: ASSESSMENT:? 23 at 39 5/7 weeks gestation? complicated by:?Anxiety/Depression on sertraline, Prepregnancy BMI 38.9, Rubella and Varicella non-immune, Failed 1 hour gct but passed 3 hr, mild asthma Labor type: Spontaneous, Early labor? Intermittent Monitoring: Reassuring? Labor complicated by: PROM and anxiety GBS negative? ? PLAN:? 1. Routine intrapartum cares as ordered. Recommended augmentation with Pitocin, she is agreeable at this time. 2. Monitoring per policy, continuous with epidural 3. Candidate for analgesia of choice if desired.?Continue epidural for pain management. 4. Patient encouraged to reposition to promote physiologic labor and .? 5. Anticipate ?
[2023-07-08] MEDS: ROPIVACAINE 0.2% 100 ml 100 ML 12 MG EPIDURAL (03:32)
[2023-07-08] MEDS: LACTATED RINGERS 1000 ML 1,000 ML 125 ML IV (05:19)
[2023-07-08] MEDS: LIDOCAINE 1 % PF 30 ML INJECTION (06:11)
--- NOTE | 2023-07-08 06:20 | W.PM.OBVAGDE ---
OB Procedure Vag Delivery Mother Details Mother Details: Ankit is a 23 year-old, 1, now para 1, admitted on 07/07/23 at 39 5/7 weeks gestation for PROM. : 1 Para: 1 Weeks Gestation: 39.6 Additional Details Amniotic Membrane Status: SROM Amniotic Membrane Rupture Date: 07/07/23 Amniotic Membrane Rupture Time: 07:00 Amniotic Membrane Fluid Description: Clear Analgesia/Anesthesia Type: Epidural Waterbirth: No Pitcoin: Yes Intrapartal Events: Labor Augmentation and ROM >18 Hours Delivery augmentation: pitocin Labor Onset: 21:30 Complete: 02:38 Pushin:41 Heart: heart tones during second stage were category II with variable decelerations noted with contractions and return to baseline between. Variability remained throughout the 2nd stage with occasional accelerations noted. Delivery Details Delivery Date: 07/08/23 Delivery Time: 05:50 Route of delivery: Gender: Male Infant Viability: Alive; Heart Rate Present Position at Delivery: OA Delivery Details: Patient was admitted for PROM that occurred at 0700 on 07/07/2023 of clear fluid. She progressed normally for the 1st stage of labor but was augmented with Pitocin in the active phase of labor. Patient was complete at 0238 and pushing at 0241, fetus likely in OP presentation at initiation of pushing. She was resistant to position changes during pushing but good maternal effort was noted. of a viable male at 0550 in semifowlers on the bed. Vertex delivered OA with tight nuchal cord, delivered through. Cord found to be wrapped around body/foot. No shoulder. Body delivered with assistance, nuchal reduced after delivery of body without incident. Infant passed to mothers abdomen with a weak cry with stimulation. Cord was clamped and cut at > 5 minutes. APGARS were 7 at one minute and 8 at five minutes respectively. Mouth was bulb suctioned. Intact placenta with a 3 vessel cord delivered spontaneously at 0559. Fundus firm. 1st degree identified and repaired in typical fashion. Periurethral and periclitoral abrasions noted, not repaired. QBL 125 cc. Mother and baby stable; mother plans to breastfeed. weight 8lb. 1 Minute Interval Total Score: 7 5 Minute Interval Total Score: 8 Additional Details Shoulder Dystocia: No Placenta Delivery Time: 05:59 Placental Delivery Description: Spontaneous Delivery repair: Vicryl Procedure Done: Global Blood Loss: 125 Laceration: Perineal - 1st Degree Blood Loss Measurement Type: QBL Bakri Used: No Sponge/Need Count Correct: No Cord Vessel Description: 3 Vessels, Nuchal Cord, Tight, Around Extremity and Delivered through (Reduced after delivery of body) Event Summary Status: Mother and were stable after delivery. Disposition: floor Assessment and Plan (1) Normal vaginal delivery: Status: Acute (2) First degree perineal laceration: Status: Acute (3) Anxiety and depression: Status: Acute (4) Lactating mother: Status: Acute
[2023-07-08] MEDS: IBUPROFEN 600 MG TABLET PO ×3 (06:26→21:45)
[2023-07-08] MEDS: SERTRALINE 50 MG TABLET PO (09:51)
[2023-07-08] MEDS: DOCUSATE SODIUM 100 MG CAPSULE PO (09:51)
[2023-07-08] MEDS: ACETAMINOPHEN 500 MG TABLET 1000 MG PO (17:35)
[2023-07-08] MEDS: LANOLIN CREAM 1 APPLIC TOPICAL (19:36)
[2023-07-09] MEDS: ACETAMINOPHEN 500 MG TABLET 1000 MG PO ×2 (00:28→08:27)
[2023-07-09 00:30] VITALS: BP 106/73; PULSE 78; RESP 16; TEMP 36.7; O2SAT 98
[2023-07-09] MEDS: IBUPROFEN 600 MG TABLET PO (04:29)
[2023-07-09 05:00] VITALS: BP 105/73; PULSE 81; RESP 16; TEMP 36.7; O2SAT 98
--- NOTE | 2023-07-09 07:16 | PM.OBDSVD1 ---
Documented by User: Lisa Barry CNM 07/09/23 08:02 DS: Providers Provider Date of admission: 07/07/23 10:19 Primary care physician: Not a Local Provider Admitting Clinician: Beba Neri CNM Consults: 07/08/23 17:44 Consult to [employer] [CONS] Routine Comment: Reason for Consult:: Social Service Consult Attending Physician on discharge: Beba Neri CNM DS: Diagnosis Discharge Diagnosis (1) care and examination immediately after delivery: Status: Acute (2) Lactating mother: Status: Acute Exam Const: Vital Signs, click to edit/add: Vital Signs - 24 hr 07/08/23 07:20 07/08/23 07:35 07/08/23 07:50 Temperature Pulse Rate 106 H 90 96 Pulse Rate [Pulse Oximeter] Respiratory Rate Blood Pressure 105/63 104/57 L 105/62 Blood Pressure [Le ft Arm] Pulse Oximetry Oxygen Delivery Me thod 07/08/23 12:00 07/08/23 15:45 07/08/23 19:20 Temperature 98.2 F 98.1 F 97.8 F Pulse Rate Pulse Rate [Pulse Oximeter] 100 99 99 Respiratory Rate 18 16 16 Blood Pressure Blood Pressure [Le ft Arm] 111/71 108/72 108/72 Pulse Oximetry 96 97 Oxygen Delivery Me thod Room Air Room Air Room Air 07/09/23 00:30 07/09/23 05:00 Temperature 98.1 F 98.1 F Pulse Rate Pulse Rate [Pulse Oximeter] 78 81 Respiratory Rate 16 16 Blood Pressure Blood Pressure [Le ft Arm] 106/73 105/73 Pulse Oximetry 98 98 Oxygen Delivery Me thod Room Air Room Air OB - DS: Summary Hospital Course Hospital Course: [] is a [] y.o. G [] P [] who was admitted to [facility] for []. ?She had an [uncomplicated] NVD The patient feels well. ?The pain is well controlled with current medications. ?She has no new complaints. ?She is [breast feeding] and reports things are [] going well.? the patient has done well.? Vitals have been stable.? She has remained afebrile.? Has a good appetite, is tolerating a general diet. ?She is voiding without difficulty.? She is passing gas and has [not] had a bowel movement.? She is ambulating and denies any dizziness.? Has [Small] amount of rubra lochia. She is planning [] for prevention. Problems: [] plan: Discharge home with baby. Follow up in 2 weeks and 6 weeks. [, may follow up with if needed] [Acute anemia, continue iron supplementation for 6 weeks] [Other] [place] Infant Gender: Male Time Spent with Patient Time attestation: Total time spent providing and/or coordinating discharge services: Discharge Plan Discharge Disposition: Home, Self-Care Date of Admission: 07/07/23 10:19 Attending Provider on Discharge: Lisa Barry Primary Care Provider: Provider,Not a Local Condition: Stable Anticipated Discharge Date/Time: 07/09/23 12:00 Discharge Medications: New acetaminophen 500 mg Tablet 1,000 mg PO Q6H PRNQty: 0 0RF docusate sodium 100 mg Capsule 100 mg PO BID PRNQty: 100 0RF Rx Instructions: Take 1 cap 1-2 times a day as needed for constipation ibuprofen 600 mg Tablet 600 mg PO Q6H PRNQty: 60 0RF Continued magnesium 200 mg tablet 400 mg PO QDAY albuterol sulfate 90 mcg/actuation HFA aerosol inhaler 2 inh inhalation Q4-6H PRN (Reason: shortness of breath or wheezing) Qty: 6.7 0RF cholecalciferol (vitamin D3) 25 mcg (1,000 unit) capsule 25 mcg PO QDAY sertraline [Zoloft] 50 mg tablet 50 mg PO QDAY DHA 200 mg capsule 200 mg PO DAILY ferrous sulfate [Feosol] 325 mg (65 mg iron) tablet 325 mg PO QDAY Discontinued aspirin [Adult Low Dose Aspirin] 81 mg tablet,delayed release (DR/EC) 81 mg PO QDAY Discharge Orders: Discharge Order (Routine); Ordered 07/09/23 Ordered By: Eunice Ribeiro Patient Education: OB Over the Counter Medication Information, OB Vaginal/Breast Feeding Additional Instructions: Discharge instructions were reviewed with the patient including signs and symptoms of infection and home going medications Nothing vaginally for 6 weeks: no tampons or intercourse Off Work or School for 6 weeks 2-week visit: discuss feeding concerns, review control options and screen for anxiety/depression. 6-week visit for an annual exam. consultation services are available to all mothers and babies for the first year after delivery.? To make an appointment, please call [phone]. Activity Level: Activity as Tolerated Discharge Diet: Regular Follow Up Appointments: [facility] [Provider Group] Forms: [email or web address] Info Instructions Documented by User: Eunice Ribeiro CNM 07/09/23 08:02 DS: Providers Provider Date Seen: 07/09/23 Attending Physician on discharge: Lisa Barry CNM with Eunice Ribeiro CNM Date of Discharge: 07/09/23 DS: Diagnosis Discharge Diagnosis (1) care and examination immediately after delivery: Status: Acute (2) Lactating mother: Status: Acute Exam Narrative: Exam Narrative: GENERAL APPEARANCE:? normal affect, alert, no distress MOOD:? appropriate CHEST:? clear to auscultation HEART:? regular rate and rhythm ABDOMEN:? soft, non-tender the uterine fundus is 1 cm below Umbilicus, Midline and is appropriate for the stage of recovery. PERINEUM:? mild edema of the perineum, there is a Perineal Laceration,? 1st degree that is healing well. EXTREMITIES:? normal and 1+ edema to hands and feet Const: Documenting provider has reviewed patient's vital signs: yes OB - DS: Summary Hospital Course Hospital Course: October is a 23 y.o. G 1 P 1 who was admitted to [facility] for SROM and labor. ?She had an uncomplicated NVD The patient feels well. ?The pain is well controlled with current medications. ?She has no new complaints. ?She is breast feeding and reports things are going well.? the patient has done well.? Vitals have been stable.? She has remained afebrile.? Has a good appetite, is tolerating a general diet. ?She is voiding without difficulty.? She is passing gas and has not had a bowel movement.? She is ambulating and denies any dizziness.? Has Small amount of rubra lochia. She is planning Nexplanon for prevention. Problems: NA plan: Discharge home with baby. Follow up in 2 weeks and 6 weeks. , may follow up with if needed Peripartum Data delivery method: Vaginal Laceration description: Perineal - 1st Degree complications: none [place] Discharge Plan: Home Status at Discharge Functional status at discharge: independent ambulation Overall status at discharge: patient is progressing back to baseline Time Spent with Patient Time spent: Less than 30 minutes Discharge Plan Discharge Disposition: Home, Self-Care Date of Admission: 07/07/23 10:19 Attending Provider on Discharge: Lisa Barry Primary Care Provider: Provider,Not a Local Condition: Stable Anticipated Discharge Date/Time: 07/09/23 12:00 Discharge Medications: New acetaminophen 500 mg Tablet 1,000 mg PO Q6H PRNQty: 0 0RF docusate sodium 100 mg Capsule 100 mg PO BID PRNQty: 100 0RF Rx Instructions: Take 1 cap 1-2 times a day as needed for constipation ibuprofen 600 mg Tablet 600 mg PO Q6H PRNQty: 60 0RF Continued magnesium 200 mg tablet 400 mg PO QDAY albuterol sulfate 90 mcg/actuation HFA aerosol inhaler 2 inh inhalation Q4-6H PRN (Reason: shortness of breath or wheezing) Qty: 6.7 0RF cholecalciferol (vitamin D3) 25 mcg (1,000 unit) capsule 25 mcg PO QDAY sertraline [Zoloft] 50 mg tablet 50 mg PO QDAY DHA 200 mg capsule 200 mg PO DAILY ferrous sulfate [Feosol] 325 mg (65 mg iron) tablet 325 mg PO QDAY Discontinued aspirin [Adult Low Dose Aspirin] 81 mg tablet,delayed release (DR/EC) 81 mg PO QDAY Discharge Orders: Discharge Order (Routine); Ordered 07/09/23 Ordered By: Eunice Ribeiro Patient Education: OB Over the Counter Medication Information, OB Vaginal/Breast Feeding Additional Instructions: Discharge instructions were reviewed with the patient including signs and symptoms of infection and home going medications Nothing vaginally for 6 weeks: no tampons or intercourse Off Work or School for 6 weeks 2-week visit: discuss infant feeding concerns, review control options and screen for anxiety/depression. 6-week visit for an annual exam. consultation services are available to all mothers and babies for the first year after delivery.? To make an appointment, please call [phone]. Activity Level: Activity as Tolerated Discharge Diet: Regular Follow Up Appointments: [facility] [Provider Group] Forms: [employer] Info Instructions
[2023-07-09 07:22] VITALS: BP 109/76; PULSE 78; RESP 16; TEMP 36.4; O2SAT 98
[2023-07-09] MEDS: DOCUSATE SODIUM 100 MG CAPSULE PO (08:30)
[2023-07-09] MEDS: SERTRALINE 50 MG TABLET PO (08:30)
--- NOTE | 2023-07-09 11:22 | PC.SOCIAL ---
Social work: Received call from RN requesting social work consult regarding pt questions about applying for Medical Assistance for baby. Met with pt who is wondering if it is faster to fill out paperwork for Medical Assistance application for baby while in the hospital. Informed pt that applying online is the quickest way to make sure application has been received. Pt states she will do that from home. Pt had no further social work questions and is aware of how to contact social welfare research worker after discharge if needed.
== END 2023-07-09 12:05 | disposition home or self-care (01) | DRG 560 ==
LOC: OB OUT 07-09 11:54
PROVIDERS: Admitting Provider Advanced Practice Midwife; Visit Provider Advanced Practice Midwife
DX: O42.02 Full-term premature rupture of membranes, onset of labor within 24 hours of rupture (principal); O99.344 Other mental disorders complicating childbirth; O70.0 First degree perineal laceration during delivery; Z3A.39 39 weeks gestation of pregnancy; Z37.0 Single live birth; F41.9 Anxiety disorder, unspecified; F32.A Depression, unspecified
CPT/HCPCS: 01967; 84112; 99213; A9270; J2001; J2371; J2795; J7120; S0020

== ENCOUNTER 2024-06-01 11:14 | Outpatient (CLI) | payer MEDICAID, BC, SELFPAY ==
--- OUTSIDE RECORDS SUMMARY | 2024-06-01 11:27 | XMS_ITS | Clinical Summary ---
Author Organization [facility] [facility] Address [place], [place] [address] Care Team Providers Care Narcotics Agent Name Role Phone Pcp, No Primary Care Provider Unavailabl e Pcp, No Unavailable Unavailable Allergies Active Allergy Reactions Criticality Noted Date Comments Amoxicillin Rash 12/25/2015 Medications Medication Sig Dispensed Refills Start Date End Date Status DULoxetine (CYMBALTA) 60 mg Delayed-release capsuleIndications:an xiety with depression Take 60 mg by mouth once daily in the morning. Active DULoxetine (CYMBALTA) 30 mg Delayed-release capsuleIndications:an xiety with depression Take 30 mg by mouth at bedtime. Active clindamycin (CLEOCIN-T) 1 % lotion Apply topically to underarms once daily in the morning Active Active Problems Problem Noted Date Diagnosed Date Elevated liver enzymes 04/30/2024 Generalized abdominal pain 04/30/2024 Moderate episode of recurren t major depressive disorder with anxious distress 12/05/2020 Resolved Problems Problem Noted Date Diagnosed Date Resolved Date Nexplanon in place 08/13/2018 Encounters Date Type Department Care Team Description 04/30/2024 12:35 PM CDT - 05/01/2024 2:40 PM CDT Hospital Encounter [facility] [address] [place] [address] [facility], [facility] Hospitalist Michael Medrano MD Discharge Disposition: Home Self Care 04/29/2024 9:09 PM CDT - 04/30/2024 11:30 AM CDT Emergency [facility] [address] [place] [address] Zaira Landers MD Horejsi, Erik Yanes MD Elevated LFTs (Primary Dx); Abdominal pain, unspecified abdominal location; Nausea and vomiting, unspecified vomiting type Discharge Disposition: Short Term/PPS Hosp 04/29/2024 Travel from Last 3 Months Immunizations Name Administration Dates Next Due DTaP 07/13/2003, 9,1998,1998, HIB HbOC (HibTITER) 06/19/1999,1998,1997,1998 HPV 9 (Gardasil 9) 10/09/2013,1998 Hepatitis B (Peds) 1998,1998, 998 Hepatitis B, Unspecified 1998,1998,0 1998 Hib Conjugate, Unspecified 06/19/1999,1998 ,1998,1998 Human Papilloma Virus Vaccine 02/11/2015, 014 Inactivated Polio Vaccine 07/13/2003,06/26/1999, 1998,1998 MMR 07/13/2003,06/19/1999 Oral Polio Vaccine 06/26/1999 Tdap 03/20/2022,06/30/2009 Varicella Vaccine 06/30/2009,06/19/1999 Social History Tobacco Use Types Packs/Day Years Used Date Smoking Tobacco: Never Smokeless Tobacco: Never Tobacco Cessation:Counseling Given: No Alcohol Use Standard Drinks/Week Comments Not Currently 0 (1 standard drink = 0.6 oz pur e alcohol) PHQ-2 Answer Date Recorded PHQ-2 TOTAL SCORE 4 08/17/2022 Social Connections Answer Date Recorded Frequency of Communication with Friends and Fami ly Not on file 10/25/2021 Financial Resource Strain Answer Date R ecorded Difficulty of Paying Living Expenses Not on file 10/25/2021 Difficulty of Paying Living Expenses Not on file 10/25/2021 Sex and Gender Information Value Date Recorded Sex Assigned at Not on file Gender Identity Not on file Sexual Orientation Not on file Obstetrics History Para Term AB IAB SAB Ectopic Multiple Livin g Live Births 1 0 0 0 0 0 0 0 0 0 0 Date Outcome GA Total Labor Labor/2nd/3rd Weight Sex Type Anes PTL Katie A1 A5 Name Clin Last Filed Vital Signs Vital Sign Reading Time Taken Comments Blood Pressure 128/92 05/01/2024 8:00 AM CDT Pulse 86 05/01/2024 8:00 AM CDT Temperature 36.8 ??C (98.3 ??F) 05/01/2024 8:00 AM CD T Respiratory Rate 16 05/01/2024 8:00 AM CDT Oxygen Saturation 96% 05/01/2024 8:00 AM CDT Inhaled Oxygen Concentration - - Weight 115.7 kg (255 lb) 04/29/2024 9:18 PM CDT Height 165.1 cm (5' 5) 04/29/2024 9:18 PM CDT Body Mass Index 42.43 04/29/2024 9:18 PM CDT Plan of Treatment Health Maintenance Due Date Last Done Comments HIV for age 15-65 2013 Pap test for age 21-65 2019 COVID-19 vaccine series (2022- season) 2023 BMI (ht and wt on same day) for age 18+ 08/17/2023 08/17/2022, 04/21/2021, 11/02/2019, Additional history exists Depression screening for age 12+ 08/17/2023 08/17/2022, 12/20/2020, 11/29/2020, Additional history exists Influenza for age 9-49 07/05/2024 Tetanus booster 03/20/2032 03/20/2022, 06/30/2009 HPV series for age 9-26 Completed 02/12/20 15, 01/04/2014, 10/09/2013, Additional history exists Tdap Completed 03/20/2022, 06/30/2009 Hepatitis C screening for age 18-79 Completed 08/17/2022 Pneumococcal series for age 6-64 Aged Out No longer eligible based on patient's age to complete this topic Procedures Procedure Name Priority Date/Time Associated Diagnosis Comments LC HCV QN INTERP [id number] Timed 05/01/2024 9:12 AM CDT ANTI-SMOOTH MUSCLE ADRIAN Early AM 9:12 AM CDT LC ACUTE HEPATITIS Early AM 05/01/2024 9: 12 AM CDT HEPATIC FUNCTION PANEL Early AM 9:12 AM CDT MR ABDOMEN MRCP LIVER WWO TEJINDER 04/30/2024 7:08 PM CDT US ABDOMEN DUPLEX COMPLETE Routine 04/30/2024 4:25 PM CDT LC HCV QN INTERP [id number] Timed 04/30/2024 12:30 AM CDT LC ACUTE HEPATITIS STAT 04/30/2024 12 :[address] ABDOMEN PELVIS W STAT 04/29/2024 1 0:52 PM CDT ACETAMINOPHEN TEJINDER 04/29/2024 9:31 PM CDT PROTIME-INR STAT 04/29/2024 9:31 PM CDT CBC WITH AUTO DIFFERENTIAL STAT 04/29/2024 9:31 PM CDT ,SERUM STAT 04/29/2024 9:31 PM CDT LIPASE STAT 04/29/2024 9:31 PM CDT HEPATIC FUNCTION PANEL STAT 9:31 PM CDT BASIC METABOLIC PANEL STAT 04/29/2024 9:31 PM CDT CBC WITH AUTO DIFFERENTIAL STAT 04/29/2024 9:31 PM CDT ANTI HCV Routine 08/17/2022 11:40 AM CDT Encounter for hepatitis C screening test for low risk patient from Last 3 Months or Most Recently Relevant to Health Maintenance Results * LC ACUTE HEPATITIS (05/01/2024 9:12 AM CDT) Only the most recent of2 resultswithin the time period is included. Hep A IgM Ab Negative Negative 05/05/2024 7:[address] [facility] Hep B Surf Ag Scr Negative Negative 05/05/2024 7:[address] [facility] ([facility]) Hep B Core IgM Ab Negative Negative 05/05/2024 7:[address] [facility] ([facility]) HCV Ab Non Reactive Non Reactive 05/05/2024 7:13 AM CDT [facility] ([facility]) Blood BLOOD SPECIMEN / Unknown Venipuncture / Unknown 05/01/2024 9:12 AM CDT 05/01/2024 9:56 AM CDT Narrative [facility] ([facility]) - 05/05/2024 7:13 AM CDT Performed at: ??[address] ??[id number] Assistant Counsel: Bhupinder Harris MD, Phone: ??[phone] Hank Gonzalez MD LABORATOR Y [facility] ([facility]) [facility] [place] [address], * LC HCV QN INTERP [id number] (05/01/2024 9:12 AM CDT) Only the most recent of2 resultswithin the time period is included. HCV Neg Interp Comment 05/05/2024 7:13 AM CDT [facility] ([facility] Comment: Not infected with HCV unless early or acute infection is suspected (which may be delayed in an immunocompromised individual), or other evidence exists to indicate HCV infection. Blood BLOOD SPECIMEN / Unknown Venipuncture / Unknown 05/01/2024 9:12 AM CDT 05/01/2024 9:56 AM CDT Narrative [facility] ([facility]) - 05/05/2024 7:13 AM CDT Performed at: ??[address] ??[id number] Assistant Counsel: Bhupinder Harris MD, Phone: ??[phone] Hank Gonzalez MD LABORATOR Y [facility] ([facility]) [address] [place] [address], * ANTI-SMOOTH MUSCLE ADRIAN (05/01/2024 9:12 AM CDT) ANTI-SMOOTH MUSCLE ANTIBODY Negative Negative 05/04/2024 2:14 PM CDT [facility] Blood BLOOD SPECIMEN / Unknown Venipuncture / Unknown 05/01/2024 9:12 AM CDT 05/01/2024 9:56 AM CDT Hank Gonzalez MD SEND OUTS [facility] [address] [address], * (ABNORMAL) HEPATIC FUNCTION PANEL (05/01/2024 9:12 AM CDT) Only the most recent of2 resultswithin the time period is included. ALBUMIN 4.0 4.0 - 4.9 g/dL 05/01/2024 10:37 AM CDT [facility] PROTEIN,TOTAL 7.1 6.0 - 8.0 g/dL 05/01/2024 10:37 AM CDT [facility] BILIRUBIN,TOTAL 0.6 0.0 - 1.2 mg/dL 05/01/2024 10:37 AM CDT [facility] BILIRUBIN,DIRECT 0.2 0.0 - 0.3 mg/dL 05/01/2024 10:37 AM CDT [facility] BILIRUBIN,INDIRE CT 0.4 0.2 - 0.8 mg/dL 05/01/2024 10:37 AM CDT [facility] ALK PHOSPHATASE 132(H) 35 - 104 IU/L 05/01/2024 10:37 AM CDT [facility] ALT (SGPT) 733(H) 10 - 35 IU/L 05/01/2024 10:37 AM CDT [facility] AST (SGOT) 234(H) 10 - 35 IU/L 05/01/2024 10:37 AM CDT [facility] Blood BLOOD SPECIMEN / Unknown Venipuncture / Unknown 05/01/2024 9:12 AM CDT 05/01/2024 9:56 AM CDT Michael Almendarez MD CHEMISTRY Performing Organization Address City/State/[facility] Co de Phone Number [facility] SENDOUT INTERNAL ZIP [phone] [place] [address] * MR ABDOMEN MRCP LIVER WWO (04/30/2024 7:08 PM CDT) Anatomical Region Laterality Modality Abdomen, LIVER Magnetic Resonan ce 04/30/2024 7:08 PM CDT Impressions 04/30/2024 7:28 PM CDT 1. ??No choledocholiths or biliary ductal dilation. 2. ??No acute abnormality or specific cause of the patient's symptoms are identified. Narrative 04/30/2024 7:28 PM CDT For Patients: As a result of the Century Cures Act, medical imaging exams and procedure reports are released immediately into your electronic medical record. You may view this report before your referring provider. If you have questions, please contact your health care provider. EXAM: MR ABDOMEN MRCP LIVER WWO LOCATION: [facility] MEDICAL IMAGING DATE: 04/30/2024 INDICATION: Elevated liver enzymes. Evaluate for biliary obstruction. COMPARISON: CT abdomen pelvis 04/29/2024. Abdominal ultrasound 04/30/2024. TECHNIQUE: Routine MR liver/pancreas protocol including axial and coronal MRCP sequences. 2D and 3D reconstruction performed by MR technologist including MIP reconstruction and slab cholangiograms. If performed with contrast, additional dynamic T1 post IV contrast images. CONTRAST: GADOTERATE MEGLUMINE 0.5 MMOL/ML IV SOLN 20 ML VIAL: 20mL FINDINGS: LIVER: Noncirrhotic liver morphology. No hepatic steatosis or iron deposition. No liver lesions. GALLBLADDER/BILIARY: Gallbladder is absent. No intrahepatic or extrahepatic biliary ductal dilation; common bile duct measures up to 6 mm in caliber. No choledocholiths or biliary strictures. PANCREAS: Normal. Conventional pancreatic ductal anatomy, without ductal dilation. SPLEEN: Normal. ADRENALS: Normal. KIDNEYS: Normal. No hydronephrosis. BOWEL: No obstruction or inflammation. LYMPH NODES: No enlarged lymph node. VASCULATURE: Patent hepatic, portal, splenic, and superior mesenteric veins. No abdominal aortic aneurysm. LUNG BASES: Normal. MUSCULOSKELETAL: No destructive bone lesions. Procedure Note Sumeet Merino MD - 04/30/2024 For Patients: As a result of the Century Cures Act, medical imagingexams and procedure reports are released immediately into your electronicmedical record. You may view this report before your referring provider.If you have questions, please contact your health care provider. EXAM: MR ABDOMEN MRCP LIVER WWO LOCATION: [facility] MEDICAL IMAGING DATE: 04/30/2024 INDICATION: Elevated liver enzymes. Evaluate for biliary obstruction. COMPARISON: CT abdomen pelvis 04/29/2024. Abdominal ultrasound 04/30/2024. TECHNIQUE: Routine MR liver/pancreas protocol including axial and coronalMRCP sequences. 2D and 3D reconstruction performed by MR technologistincluding MIP reconstruction and slab cholangiograms. If performed withcontrast, additional dynamic T1 post IV contrast images. CONTRAST: GADOTERATE MEGLUMINE 0.5 MMOL/ML IV SOLN 20 ML VIAL: 20mL FINDINGS: LIVER: Noncirrhotic liver morphology. No hepatic steatosis or irondeposition. No liver lesions. GALLBLADDER/BILIARY: Gallbladder is absent. No intrahepatic orextrahepatic biliary ductal dilation; common bile duct measures up to 6 mmin caliber. No choledocholiths or biliary strictures. PANCREAS: Normal. Conventional pancreatic ductal anatomy, without ductaldilation. SPLEEN: Normal. ADRENALS: Normal. KIDNEYS: Normal. No hydronephrosis. BOWEL: No obstruction or inflammation. LYMPH NODES: No enlarged lymph node. VASCULATURE: Patent hepatic, portal, splenic, and superior mesentericveins. No abdominal aortic aneurysm. LUNG BASES: Normal. MUSCULOSKELETAL: No destructive bone lesions. IMPRESSION: 1. No choledocholiths or biliary ductal dilation. 2. No acute abnormality or specific cause of the patient's symptoms areidentified. Hank Gonzalez MD MR * US ABDOMEN DUPLEX COMPLETE (04/30/2024 4:25 PM CDT) Anatomical Region Laterality Modality Abdomen, AORTA, LIVER, KIDNEYS U ltrasound 04/30/2024 4:25 PM CDT Impressions 04/30/2024 4:46 PM CDT 1. ??Normal liver Doppler exam. Narrative 04/30/2024 4:46 PM CDT For Patients: As a result of the Cures Act, medical imaging exams and procedure reports are released immediately into your electronic medical record. You may view this report before your referring provider. If you have questions, please contact your health care provider. EXAM: US ABDOMEN DUPLEX COMPLETE LOCATION: [facility] DATE: 04/30/2024 INDICATION: Abdominal pain. COMPARISON: CT abdomen pelvis 04/29/2024. TECHNIQUE: Abdominal Doppler ultrasound. Color flow with spectral Doppler and waveform analysis performed. FINDINGS: GALLBLADDER: Surgically removed. BILE DUCTS: No biliary dilatation. The common duct measures 3 mm. LIVER: Normal parenchyma with smooth contour. No focal mass. PANCREAS: The visualized portions are normal. AORTA: Normal in caliber. IVC: Normal where visualized. No ascites. ABDOMINAL DUPLEX: The hepatic artery, hepatic veins, IVC, portal veins, and splenic vein are patent with flow in the normal direction. Procedure Note Sumeet Merino MD - 04/30/2024 For Patients: As a result of the Cures Act, medical imagingexams and procedure reports are released immediately into your electronicmedical record. You may view this report before your referring provider.If you have questions, please contact your health care provider. EXAM: US ABDOMEN DUPLEX COMPLETE LOCATION: [facility] DATE: 04/30/2024 INDICATION: Abdominal pain. COMPARISON: CT abdomen pelvis 04/29/2024. TECHNIQUE: Abdominal Doppler ultrasound. Color flow with spectral Dopplerand waveform analysis performed. FINDINGS: GALLBLADDER: Surgically removed. BILE DUCTS: No biliary dilatation. The common duct measures 3 mm. LIVER: Normal parenchyma with smooth contour. No focal mass. PANCREAS: The visualized portions are normal. AORTA: Normal in caliber. IVC: Normal where visualized. No ascites. ABDOMINAL DUPLEX: The hepatic artery, hepatic veins, IVC, portal veins,and splenic vein are patent with flow in the normal direction. IMPRESSION: 1. Normal liver Doppler exam. Hank Gonzalez MD US * CT ABDOMEN PELVIS W (04/29/2024 10:52 PM CDT) Anatomical Region Laterality Modality Abdomen, Pelvis, AORTA, LIVER, SPLEEN Computed Tomography 04/30/2024 12:5 0 AM CDT Impressions 04/30/2024 12:50 AM CDT 1. Interval cholecystectomy. No biliary dilation or suspicious fluid collections. 2. Distended fluid-filled stomach. Small bowel is normal in caliber without evidence of obstruction. 3. Few tiny foci of gas within the bladder. This could be related to recent instrumentation or infection. No other signs of bladder inflammation. Correlate with urinalysis. 4. Right adnexal cyst measuring 2.8 cm. Please note that all CT scans at this facility use dose modulation, iterative reconstruction, and/or weight-based dosing when appropriate to reduce radiation dose to as low as reasonably achievable. Dictated by Ya Durham MD @ 04/30/2024 12:50:23 AM (Electronically Signed) Narrative 04/30/2024 12:50 AM CDT For Patients: ??As a result of the 21st Century Cures Act, medical imaging exams and procedure reports are released immediately into your electronic medical record. ??You may view this report before your referring provider. ??If you have questions, please contact your health care provider. INDICATION: Abdominal pain, acute, nonlocalized. Elevated LFTs, severe abdominal pain, chest pain, nausea. Status post cholecystectomy on 08/13/2023. TECHNIQUE: CT of the abdomen and pelvis acquired with 100 cc Omnipaque 300 IV contrast. Coronal and sagittal reconstructions. COMPARISON: CT of the abdomen and pelvis 08/06/2023. FINDINGS: The liver, spleen, pancreas, and adrenal glands are negative. Interval cholecystectomy. No biliary dilation. Hepatic and portal veins are patent. Symmetric enhancement of the kidneys. No hydronephrosis or ureteral dilation. No obstructing urinary calculi identified. No bladder wall thickening. Few tiny foci of gas in the bladder. Uterus is unremarkable. There is a 2.8 cm cystic lesion in the right adnexa (series 2 image 195). Distended fluid-filled stomach. No small bowel dilation. Moderate amount of stool throughout the colon. The appendix is not identified. No intraperitoneal free air or fluid. No lymphadenopathy. Small fat containing umbilical hernia. The lung bases are clear. The bones are unremarkable. Procedure Note Ya Durham MD - 04/30/2024 For Patients: As a result of the Cures Act, medical imagingexams and procedure reports are released immediately into your electronicmedical record. You may view this report before your referring provider.If you have questions, please contact your health care provider. INDICATION: Abdominal pain, acute, nonlocalized. Elevated LFTs, severe abdominal pain,chest pain, nausea. Status post cholecystectomy on 08/13/2023. TECHNIQUE: CT of the abdomen and pelvis acquired with 100 cc Omnipaque 300 IVcontrast. Coronal and sagittal reconstructions. COMPARISON: CT of the abdomen and pelvis 08/06/2023. FINDINGS: The liver, spleen, pancreas, and adrenal glands are negative. Intervalcholecystectomy. No biliary dilation. Hepatic and portal veins arepatent. Symmetric enhancement of the kidneys. No hydronephrosis or ureteraldilation. No obstructing urinary calculi identified. No bladder wallthickening. Few tiny foci of gas in the bladder. Uterus is unremarkable.There is a 2.8 cm cystic lesion in the right adnexa (series 2 ). Distended fluid-filled stomach. No small bowel dilation. Moderate amountof stool throughout the colon. The appendix is not identified. Nointraperitoneal free air or fluid. No lymphadenopathy. Small fatcontaining umbilical hernia. The lung bases are clear. The bones are unremarkable. IMPRESSION: 1. Interval cholecystectomy. No biliary dilation or suspicious fluidcollections. 2. Distended fluid-filled stomach. Small bowel is normal in caliberwithout evidence of obstruction. 3. Few tiny foci of gas within the bladder. This could be related torecent instrumentation or infection. No other signs of bladderinflammation. Correlate with urinalysis. 4. Right adnexal cyst measuring 2.8 cm. Please note that all CT scans at this facility use dose modulation,iterative reconstruction, and/or weight-based dosing when appropriate toreduce radiation dose to as low as reasonably achievable. Dictated by Ya Durham MD @ 04/30/2024 12:50:23 AM (Electronically Signed) Zaira Landers MD CT * CBC WITH AUTO DIFFERENTIAL (04/29/2024 9:31 PM CDT) WHITE BLOOD COUNT 7.0 4.5 - 11.0 thou/cu mm 04/29/2024 9:[address] [facility] RED BLOOD COUNT 5.14 4.00 - 5.20 mil/cu mm 04/29/2024 9:[address] [facility] HEMOGLOBIN 13.9 12.0 - 16.0 g/dL 04/29/2024 9:[address] [facility] HEMATOCRIT 42.4 33.0 - 51.0 % 04/29/2024 9:[address] [facility] MCV 83 80 - 100 fL 04/29/2024 9:[address] [facility] MCH 27.0 26.0 - 34.0 pg 04/29/2024 9:[address] [facility] MCHC 32.8 32.0 - 36.0 g/dL 04/29/2024 9:[address] [facility] RDW 14.7 11.5 - 15.5 % 04/29/2024 9:[address] [facility] PLATELET COUNT 310 140 - 440 thou/cu mm 04/29/2024 9:[address] [facility] MPV 10.4 6.5 - 11.0 fL 04/29/2024 9:[address] [facility] % NEUT 55.6 % 04/29/2024 9:38 PM CDT [facility] % LYMPH 35.0 % 04/29/2024 9:38 PM CDT [facility] % MONO 7.2 % 04/29/2024 9:38 PM CDT [facility] % EOS 1.9 % 04/29/2024 9:38 PM CDT [facility] % BASO 0.3 % 04/29/2024 9:38 PM CDT [facility] ABSOLUTE NEUTROPHILS 3.9 1.7 - 7.0 thou/cu mm 04/29/2024 9:38 PM CDT [facility] ABSOLUTE LYMPHOCYTES 2.4 0.9 - 2.9 thou/cu mm 04/29/2024 9:38 PM CDT [facility] ABSOLUTE MONOCYTES 0.5 <0.9 thou/cu mm 04/29/2024 9:38 PM T [facility] ABSOLUTE EOSINOPHILS 0.1 <0.5 thou/cu mm 04/29/2024 9:38 PM T [facility] ABSOLUTE BASOPHILS 0.0 <0.3 thou/cu mm 04/29/2024 9:38 PM T [facility] Blood BLOOD SPECIMEN / Unknown Venipuncture / Unknown 04/29/2024 9:31 PM CDT 04/29/2024 9:34 PM CDT Zaira Landers MD HEMATOLOGY [facility] [address] [place] [id number] * ,SERUM (04/29/2024 9:31 PM CDT) ,SERU M Negative Negative 04/29/2024 9:46 PM CDT [facility] Blood BLOOD SPECIMEN / Unknown Venipuncture / Unknown 04/29/2024 9:31 PM CDT 04/29/2024 9:34 PM CDT Zaira Landers MD CHEMISTRY [facility] [address] [place] [address] * PROTIME-INR (04/29/2024 9:31 PM CDT) INR 1.0 <1.3 04/30/2024 12:36 AM CDT [facility] PROTIME 11.3 10.3 - 12.3 sec 04/30/2024 12:36 AM CDT [facility] Blood BLOOD SPECIMEN / Unknown Venipuncture / Unknown 04/29/2024 9:31 PM CDT 04/30/2024 12:32 AM CDT Narrative [facility] - 04/30/2024 12:36 AM CDT ?Therapeutic Range 2.0-3.0 for most anticoagulated patients 2.5-3.5 or 4.0 for high risk patients The INR is only used for patients on stable oral anticoagulant therapy. It makes no significant contribution to the diagnosis or treatment of patients whose Protime is prolonged for other reasons. INR results are increased when heparin levels exceed 1.0 U/mL, which corresponds to an aPTT >125 seconds if the patient is on UFH. Zaira Landers MD HEMATOLOGY [facility] [address] [place] [address] * LIPASE (04/29/2024 9:31 PM CDT) Pathologist [facility] LIPASE 41.9 13.0 - 60.0 IU/L 04/29/2024 9:55 PM CDT [facility] Blood BLOOD SPECIMEN / Unknown Venipuncture / Unknown 04/29/2024 9:31 PM CDT 04/29/2024 9:34 PM CDT Zaira Landers MD CHEMISTRY [facility] [address] [place] [address] * (ABNORMAL) ACETAMINOPHEN (04/29/2024 9:31 PM CDT) ACETAMINOPHEN <5.0(L) 10.0 - 30.0 ug/mL 04/30/2024 12:[address] [facility] Blood BLOOD SPECIMEN / Unknown Venipuncture / Unknown 04/29/2024 9:31 PM CDT 04/29/2024 9:34 PM CDT Zaira Landers MD CHEMISTRY [facility] [address] [place] [address] * (ABNORMAL) BASIC METABOLIC PANEL (04/29/2024 9:31 PM CDT) Pathologist [facility] SODIUM 142 136 - 145 mmol/L 04/29/2024 9:[address] [facility] POTASSIUM 3.9 3.5 - 5.1 mmol/L 04/29/2024 9:[address] [facility] CHLORIDE 106 98 - 107 mmol/L 04/29/2024 9:[address] [facility] CO2,TOTAL 27 22 - 29 mmol/L 04/29/2024 9:[address] [facility] ANION GAP 9 5 - 18 04/29/2024 9:[address] [facility] GLUCOSE 102(H) 70 - 99 mg/dL 04/29/2024 9:[address] [facility] CALCIUM 9.4 8.6 - 10.0 mg/dL 04/29/2024 9:[address] [facility] BUN 10 6 - 20 mg/dL 04/29/2024 9:[address] [facility] CREATININE 0.81 0.50 - 0.90 mg/dL 04/29/2024 9:[address] [facility] BUN/CREAT RATIO 12 10 - 20 9:[address] [facility] eGFR >90 >90 mL/min/1.7 3m2 04/29/2024 9:[address] [facility] Comment:As of 2022, eG FR is calculated by the CKD-EPI creatinine equation without race adjustment. ??eGFR can be influenced by muscle mass, exercise, and diet. ??The reported eGFR is an estimation only and is only applicable if the renal function is stable. Blood BLOOD SPECIMEN / Unknown Venipuncture / Unknown 04/29/2024 9:31 PM CDT 04/29/2024 9:34 PM CDT Zaira Landers MD CHEMISTRY [facility] [address] [place] [address] * ANTI HCV (08/17/2022 11:40 AM CDT) HEPATITIS C ANTIBODY Non-React audra Non-React audra 08/18/2022 6:46 AM CDT [facility] Comment:Antibodies to HCV no t detected; does not exclude the possibility of exposure to HCV. Blood BLOOD SPECIMEN / Unknown Venipuncture / Unknown 08/17/2022 11:40 AM CDT 08/17/2022 11:41 AM CDT Sharla Delatorre NP SEND OUTS [facility] [address] [place] [address], [place] from Last 3 Months or Most Recently Relevant to Health Maintenance Advance Directives * Full Code (Latest Code Status on File) Date Activated Date Inactivated Comments 04/30/2024 1:16 PM 05/01/2024 4:43 PM Question Answer Comments Code Status Discussion: Reviewed Preferences * Full Code Date Activated Date Inactivated Comments 08/13/2023 9:13 AM 08/13/2023 5:06 PM Question Answer Comments Code Status Discussion: Reviewed Preferences * Full Code Date Activated Date Inactivated Comments 09/22/2021 7:36 AM 09/22/2021 11:39 AM Question Answer Comments Code Status Discussion: Unable to Assess Preferences, Provider to review later Care Teams Narcotics Agent Relationship Specialty Start Date End Date Pcp, No . PCP - General 04/14/17 Pcp, No . 04/14/17
== END 2024-06-01 11:15 | disposition home or self-care (01) ==
PROVIDERS: Visit Provider Registered Nurse
DX: Z00.00 Encounter for general adult medical examination without abnormal findings (principal); E66.9 Obesity, unspecified; R74.8 Abnormal levels of other serum enzymes
CPT/HCPCS: 80053; 80061; 82728; 83516; 83540; 83550

== ENCOUNTER 2025-01-25 10:59 | Outpatient (CLI) | payer MEDICAID, SELFPAY | END 2025-01-25 11:00 | disposition home or self-care (01) | LOC: NFLDREF 11:01 | PROVIDERS: PCP Registered Nurse; Visit Provider Registered Nurse | DX: F41.8 Other specified anxiety disorders (principal); Z13.29 Encounter for screening for other suspected endocrine disorder | CPT/HCPCS: 84443 ==

== ENCOUNTER 2025-06-03 15:36 | Outpatient (CLI) | payer MEDICAID, SELFPAY ==
--- NOTE | 2025-06-15 09:08 | W.PM.SLEEP ---
Sleep Study Details Details Interpreting Provider: Angi Date of Sleep Study: 06/03/25 Sleep Study Details: STUDY TYPE:? Home unattended ? BMI:? 37.1 ORDERING PROVIDER:? Angi INDICATION:? Concerns about sleep apnea ? SLEEP SUMMARY:? 429 minutes monitored RESPIRATORY SUMMARY:? AHI 13.9 per rule 1A, 8.8 per CMS guideline Low oxygen 82 0.5% of study oxygen less than 90% Snoring 37% PERIODIC LIMB MOVEMENTS OF SLEEP:? Not recorded CARDIAC:? Range 53-114, mean 75.9 beats per minute IMPRESSION:? Mild obstructive sleep apnea RECOMMENDATION: Weight loss is recommended. If patient is symptomatic treatment could consist of CPAP, dental appliance and/or airway expansion surgery.
== END 2025-06-03 15:37 | disposition home or self-care (01) ==
LOC: SLEEP 15:38
PROVIDERS: Visit Provider Otolaryngology
DX: G47.33 Obstructive sleep apnea (adult) (pediatric) (principal)
CPT/HCPCS: 95806

== ENCOUNTER 2025-09-21 13:50 | Outpatient (CLI) | payer MEDICAID, SELFPAY | END 2025-09-21 13:51 | disposition home or self-care (01) | LOC: NFLDREF 09-25 17:50 | PROVIDERS: PCP Family Medicine; Referring Provider Family Medicine; Visit Provider Family Medicine | DX: Z13.1 Encounter for screening for diabetes mellitus (principal); E78.1 Pure hyperglyceridemia | CPT/HCPCS: 80061; 82947 ==